=== PATIENT | male | born 1965 | race Caucasian/White ===

== ENCOUNTER 2017-10-27 10:05 | Day surgery (SDC) | payer OTHER ==
[2017-10-27] MEDS ORDERED: NS 1,000 ML IV (10:45)
[2017-10-27] MEDS ORDERED: PROPOFOL 200 MG/20 ML VIAL As Ordered ×2 (11:09)
== END 2017-10-27 12:34 | disposition home or self-care (01) ==
LOC: M OPP 12:34
DX: K51.50 Left sided colitis without complications (principal); K51.90 Ulcerative colitis, unspecified, without complications; Z79.899 Other long term (current) drug therapy
CPT/HCPCS: 45380

== ENCOUNTER → 2023-09-17 | Outpatient (CLI) | payer OTHER ==
[~2023-09-17] MED LIST: DELZ400C5 PO
[2023-09-17 11:54] LABS: HEMATOCRIT 47.7 % (42.0-52.0); MEAN CORPUSCULAR HEMOGLOBIN 29.4 pg (27.0-33.0); MEAN CORPUSCULAR HGB CONC 33.5 g/dl (32.0-36.5); MEAN CORPUSCULAR VOLUME 87.5 fl (80.0-96.0); PLATELET COUNT, AUTOMATED 239 10^3/uL (150-450); RED BLOOD COUNT 5.45 10^6/uL (4.30-6.10); WHITE BLOOD COUNT 6.3 10^3/uL (4.0-10.0)
[2023-09-17 12:23] LABS: ALBUMIN 3.8 G/DL (3.2-5.2); ALKALINE PHOSPHATASE 110 U/L (46-116); ALT/SGPT 16 U/L (7.0-40); AST/SGOT 10 U/L (<34); BILIRUBIN,TOTAL 0.7 MG/DL (0.3-1.2); BLOOD UREA NITROGEN 13 MG/DL (9-23); CALCIUM LEVEL 9.2 MG/DL (8.5-10.1); CARBON DIOXIDE LEVEL 28 MMOL/L (20-31); CHLORIDE LEVEL 108 MMOL/L (98-107); GLOMERULAR FILTRATION RATE > 60.0 (>56); GLUCOSE, FASTING 101 MG/DL (60-100); POTASSIUM SERUM 4.4 MMOL/L (3.5-5.1); SODIUM LEVEL 141 MMOL/L (136-145)
== END ==
LOC: M LRY 09:36
PROVIDERS: ATTEND Physician Assistant Medical
DX: K51.50 Left sided colitis without complications (principal)

== ENCOUNTER 2024-03-28 07:42 | Day surgery (SDC) | payer OTHER ==
[~2024-03-28] VITALS: Ht 185.4 cm; Wt 114.3 kg
[~2024-03-28 07:42] MED LIST changes: +LIDOCAINE 2% 100MG/5ML SDV (FOR ANES.) As Ordered ONE; +propofoL 200 MG/20 ML VIAL As Ordered ONE
[2024-03-28 10:26] VITALS: TEMP 98
[2024-03-28 10:44] VITALS: BP 160/93; O2SAT 97
== END 2024-03-28 10:48 | disposition home or self-care (01) ==
LOC: M OPP 07:42
PROVIDERS: ATTEND Internal Medicine Gastroenterology
DX: K51.30 Ulcerative (chronic) rectosigmoiditis without complications (principal); K51.50 Left sided colitis without complications; Z79.899 Other long term (current) drug therapy